=== PATIENT | male | born 1940 | race Caucasian/White ===

== ENCOUNTER → 2019-01-31 | Outpatient (CLI) | payer MEDICARE, OTHER ==
--- NOTE | 2019-02-01 08:59 | MR ---
EXAMINATION TYPE: MR lumbar spine wo con DATE OF EXAM: 01/31/2019 COMPARISON: NONE HISTORY: LBP, stenosis TECHNIQUE: T1 and T2 axial and sagittal images of the lumbar spine are submitted. FINDINGS: There is no abnormal signal seen within the visualized spinal cord or paraspinal soft tissu es. There is severe multilevel degenerative disc disease extending from L2 through S1. Loss of disc s ignal and space is noted and there is posterior spondylosis. At L1-2 there is mild to moderate degenerative disc disease. No Canal stenosis. Neural foramina are p atent At L2-3 there is facet arthropathy with circumferential disc bulging and ligamentum flavum hypertroph y result in mild central stenosis and bilateral foraminal encroachment greater on the left. At L3-4 there is diffuse disc bulging with hypertrophy of the facet joints and ligamentum flavum resu lt in moderate central stenosis and bilateral foraminal encroachment. At L4-5 there is diffuse disc bulging with facet arthropathy and ligamentum flavum result in moderate canal stenosis and moderate bilateral foraminal encroachment At L5-S1 there is broad-based central disc bulging with facet arthropathy. Mild thecal sac compressio n. Hypertrophic changes result in moderate bilateral foraminal encroachment. IMPRESSION: 1. Multilevel severe degenerative disc disease extending from levels L2-S1 resulting in multilevel ca nal stenosis and foraminal encroachment at all of these levels. Most marked findings seen at L4-L5. 2. Disc bulging centrally L5-S1. 2. Multilevel hypertrophic changes resulting in multilevel bilateral foraminal encroachment extending from L2 through S1.
== END | disposition home or self-care (01) ==
LOC: RADMRIMAIN 13:35
PROVIDERS: ATTEND Internal Medicine Geriatric Medicine
DX: M48.061 Spinal stenosis, lumbar region without neurogenic claudication (principal); M51.27 Other intervertebral disc displacement, lumbosacral region; M51.36 Other intervertebral disc degeneration, lumbar region; M51.37 Other intervertebral disc degeneration, lumbosacral region
CPT/HCPCS: 72148

== ENCOUNTER → 2019-12-27 | Outpatient (CLI) | payer MEDICARE, OTHER ==
--- NOTE | 2019-12-27 14:40 | MR ---
EXAMINATION TYPE: MR brain wo/w con DATE OF EXAM: 12/27/2019 2:17 PM COMPARISON: NONE HISTORY: I63.9 cerebral infarction, Hearing loss Bilat, Prostate CA CONTRAST: Patient received 9.5 mL intravenous Gadavist gadolinium contrast. Multiplanar and multispin-echo imaging of the brain was performed . Pre and post contrast enhanced i mages are obtained. The ventricles, basal cisterns and sulci overlying the cerebral convexities are mildly enlarged. There is evidence of mild periventricular white matter ischemic demyelination. Remote deep white matter insults are also noted. No acute edema is seen on diffusion weighted imaging. There is no evidence for midline shift or mass effect. Acute intracranial hemorrhage or extra-axial collection is not evident. No enhancing lesions are seen. The paranasal sinuses and mastoid air cells are well-aerated. IMPRESSION: Age-related atrophic and chronic small vessel ischemic change. No acute intracranial process at this time. No enhancing lesions are seen.
== END | disposition home or self-care (01) ==
LOC: RADMRIMAIN 12:28
PROVIDERS: ATTEND Nurse Practitioner Gerontology
DX: G31.1 Senile degeneration of brain, not elsewhere classified (principal); I67.82 Cerebral ischemia
CPT/HCPCS: 70553; A9585